=== PATIENT | male | born 1960 | race Caucasian/White ===

== ENCOUNTER 2016-09-07 00:40 | Emergency (ER) | payer OTHER ==
[~2016-09-07] VITALS: Ht 170.2 cm; Wt 74.8 kg
[2016-09-07 00:45] VITALS: BP_SYST 154
[2016-09-07 01:09] VITALS: BP_SYST 137
== END 2016-09-07 01:09 ==
LOC: SED 00:40
DX: Z04.1 Encounter for examination and observation following transport accident (principal)
CPT/HCPCS: 99283

== ENCOUNTER 2017-02-18 18:24 | Inpatient (IN) | payer OTHER ==
[~2017-02-18] VITALS: Ht 170.2 cm; Wt 78.0 kg
[2017-02-18 18:42] VITALS: BP_SYST 169
[2017-02-18] MEDS ORDERED: levETIRAcetam 1,000 MG IV BAG 100 ML IV ONE (18:45)
[2017-02-18] MEDS ORDERED: NACL 0.9% 1,000 ML IV ONE ×2 (18:45→21:45)
[2017-02-18 18:53] LABS: BASOPHILS # (AUTO) 0.1 K/uL (0.0-0.2); BASOPHILS % (AUTO) 0.8 % (0.0-2.0); EOSINOPHILS # (AUTO) 0.2 K/uL (0.0-0.4); EOSINOPHILS % (AUTO) 2.3 % (0.0-4.0); HEMATOCRIT 43.4 % (36-54); HEMOGLOBIN 14.2 g/dL (14.0-18.0); LYMPHOCYTES % (AUTO) 37.5 % (20.5-51.5); MEAN CORPUSCULAR HEMOGLOBIN 31 pg (27-31); MEAN CORPUSCULAR HGB CONC 33 % (32-36); MEAN CORPUSCULAR VOLUME 95 fL (79.0-98.0); MONOCYTES # (AUTO) 1.1 K/uL (0.0-1.0); MONOCYTES % (AUTO) 10.7 % (1.7-9.3); NEUTROPHILS # (AUTO) 5.2 K/uL (1.8-7.7); NEUTROPHILS % (AUTO) 48.7 % (40.0-70.0); PLATELET COUNT (AUTO) 447 K/uL (130-430); RED BLOOD CELL COUNT(AUTO) 4.58 MIL/uL (4.2-6.2); RED CELL DISTRIBUTION WIDTH 11.8 % (9.0-15.0); WHITE BLOOD COUNT (AUTO) 10.6 K/uL (4.8-10.8)
[2017-02-18 19:17] LABS: ANION GAP 23 (5-15); CALCIUM 9.4 mg/dL (8.4-11.0); CHLORIDE 101 mmol/L (98-107); CREATININE 1.52 mg/dL (0.55-1.30); GLUCOSE 111 mg/dL (70-99); INR 1.1 (0.80-1.20); PROTHROMBIN TIME 10.7 SECS (9.5-12.5); SODIUM SERUM 141 mmol/L (136-145); UREA NITROGEN, BLOOD 15 mg/dL (8-21)
[2017-02-18 19:25] LABS: ALANINE AMINOTRANSFERASE 33 U/L (12-78); ASPARTATE AMINOTRANSFERASE 27 U/L (10-37); TOTAL BILIRUBIN 0.3 mg/dL (0.0-1.0)
[2017-02-18 19:28] LABS: GFR AFRICAN AMERICAN 61 mL/min (>90)
[2017-02-18 19:29] LABS: ALCOHOL, BLOOD < 3 mg/dL (<10)
[2017-02-18 19:30] LABS: ACETAMINOPHEN < 1 ug/mL (1-30)
[2017-02-18 20:24] LABS: BILIRUBIN,URINE NEGATIVE (NEGATIVE); BLOOD, URINE 1+ (NEGATIVE); CLARITY/URINE CLEAR (CLEAR); COLOR,URINE YELLOW (YELLOW); GLUCOSE,URINE NEGATIVE (NEGATIVE); KETONES,URINE NEGATIVE (NEGATIVE); LEUKOCYTE ESTERASE ,URINE NEGATIVE (NEGATIVE); NITRITE, URINE NEGATIVE (NEGATIVE); PH,URINE 5.5 (5.0-8.0); PROTEIN URINE 1+ (NEGATIVE); UROBILINOGEN,URINE 0.2 (0.2-1.0)
[2017-02-18 20:28] LABS: BARBITURATE, URINE NEGATIVE (NEG <=200); BENZODIAZEPINE, URINE NEGATIVE (NEG <=150); CANNABINOID, URINE POSITIVE (NEG <=50); COCAINE, URINE NEGATIVE (NEG <=150); METHAMPHETAMINES SCREEN,URINE NEGATIVE (NEG <=500); OPIATE, URINE NEGATIVE (NEG <=100); PHENCYCLIDINE SCREEN,URINE NEGATIVE (NEG <=25); UR TRICYCLIC ANTIDEPRESSANTS NEGATIVE (NEG <=300); URINE AMPHETAMINE NEGATIVE (NEG <=500); URINE METHADONE NEGATIVE (NEG <=200); URINE OXYCODONE SCREEN NEGATIVE (NEG <=100); URINE PROPOXYPHENE SCREEN NEGATIVE (NEG <=300)
[2017-02-18 20:39] LABS: BACTERIA,URINE FEW /HPF (None Seen); FINE GRANULAR CASTS,URINE 0-10 /LPF (None Seen); HYALINE CASTS, URINE 0-10 /LPF (None Seen); MUCUS,URINE 2+ /LPF (None Seen); RBC,URINE 0-3 /HPF (0-3); WBC,URINE 0-3 /HPF (0-3)
[2017-02-18] MEDS ORDERED: POTASSIUM CHLORIDE 20 MEQ/PKT PACKET PO ONE (21:45)
[2017-02-18 22:09] VITALS: BP_SYST 127
[2017-02-18] MEDS ORDERED: MUPIROCIN 2% TOPICAL OINTMENT 22 GM NS PRN (22:15)
[2017-02-18] MEDS ORDERED: ACETAMINOPHEN 325 MG TABLET PO PRN (22:15)
[2017-02-18] MEDS ORDERED: POTASSIUM CHLORIDE 20 MEQ TAB.PRT.SR PO PRN (22:15)
[2017-02-18] MEDS ORDERED: DOCUSATE SODIUM 100 MG CAPSULE PO PRN (22:15)
[2017-02-18] MEDS ORDERED: LORazepam 2 MG/ML VIAL IVP PRN (22:15)
[2017-02-18] MEDS ORDERED: ONDANSETRON HCL 4 MG/2 ML VIAL IVP PRN (22:15)
[2017-02-18] MEDS ORDERED: MAGNESIUM SULFATE 50 ML IV PRN (22:15)
[2017-02-18] MEDS ORDERED: ZOLPIDEM TARTRATE 5 MG TABLET PO PRN (22:15)
[2017-02-18] MEDS ORDERED: MORPHINE 2 MG/ML INJ. SYRINGE IVP PRN ×2 (22:15)
[2017-02-19] VITALS (7 sets, daily range): BP systolic 118–136
[2017-02-19] MEDS: NACL 0.9% 1,000 ML IV SCH ×2 (02:13→13:50)
[2017-02-19 07:54] LABS: BASOPHILS % (AUTO) 0.4 % (0.0-2.0); EOSINOPHILS # (AUTO) 0.2 K/uL (0.0-0.4); EOSINOPHILS % (AUTO) 1.8 % (0.0-4.0); HEMATOCRIT 38.8 % (36-54); LYMPHOCYTES # (AUTO) 1.5 K/uL (1.0-5.5); LYMPHOCYTES % (AUTO) 17.8 % (20.5-51.5); MEAN CORPUSCULAR HEMOGLOBIN 32 pg (27-31); MEAN CORPUSCULAR HGB CONC 33 % (32-36); MEAN CORPUSCULAR VOLUME 96 fL (79.0-98.0); MONOCYTES # (AUTO) 0.6 K/uL (0.0-1.0); MONOCYTES % (AUTO) 7.1 % (1.7-9.3); NEUTROPHILS # (AUTO) 6.2 K/uL (1.8-7.7); NEUTROPHILS % (AUTO) 72.9 % (40.0-70.0); PLATELET COUNT (AUTO) 329 K/uL (130-430); RED BLOOD CELL COUNT(AUTO) 4.07 MIL/uL (4.2-6.2); RED CELL DISTRIBUTION WIDTH 11.6 % (9.0-15.0); WHITE BLOOD COUNT (AUTO) 8.5 K/uL (4.8-10.8)
[2017-02-19 08:01] LABS: CALCIUM 8.6 mg/dL (8.4-11.0); CREATININE 1.16 mg/dL (0.55-1.30); POTASSIUM 4.1 mmol/L (3.5-5.1)
[2017-02-19] MEDS: levETIRAcetam 500 MG TABLET PO SCH ×2 (09:48→20:42)
[2017-02-20 00:16] VITALS: BP_SYST 123
[2017-02-20] MEDS: NACL 0.9% 1,000 ML IV SCH ×2 (01:59→05:57)
[2017-02-20 04:07] VITALS: BP_SYST 129
[2017-02-20 07:14] LABS: BASOPHILS % (AUTO) 0.5 % (0.0-2.0); EOSINOPHILS # (AUTO) 0.1 K/uL (0.0-0.4); EOSINOPHILS % (AUTO) 1.7 % (0.0-4.0); HEMATOCRIT 38.2 % (36-54); HEMOGLOBIN 13.1 g/dL (14.0-18.0); LYMPHOCYTES # (AUTO) 1.7 K/uL (1.0-5.5); MEAN CORPUSCULAR HEMOGLOBIN 32 pg (27-31); MEAN CORPUSCULAR HGB CONC 34 % (32-36); MEAN CORPUSCULAR VOLUME 94 fL (79.0-98.0); MONOCYTES # (AUTO) 0.5 K/uL (0.0-1.0); MONOCYTES % (AUTO) 6.6 % (1.7-9.3); NEUTROPHILS # (AUTO) 5.8 K/uL (1.8-7.7); NEUTROPHILS % (AUTO) 70.2 % (40.0-70.0); PLATELET COUNT (AUTO) 294 K/uL (130-430); RED BLOOD CELL COUNT(AUTO) 4.05 MIL/uL (4.2-6.2); RED CELL DISTRIBUTION WIDTH 11.5 % (9.0-15.0); WHITE BLOOD COUNT (AUTO) 8.1 K/uL (4.8-10.8)
[2017-02-20 07:20] LABS: CALCIUM 8.9 mg/dL (8.4-11.0); CREATININE 1.02 mg/dL (0.55-1.30); POTASSIUM 3.7 mmol/L (3.5-5.1)
[2017-02-20 07:50] VITALS: BP_SYST 126
[2017-02-20] MEDS: levETIRAcetam 500 MG TABLET PO SCH (08:39)
[2017-02-20 10:47] VITALS: BP_SYST 130
[2017-02-20 11:44] VITALS: BP_SYST 131
[2017-02-20] MEDS ORDERED: LEVE500T53 PO (13:16)
[2017-02-20 15:16] VITALS: BP_SYST 130
== END 2017-02-20 15:50 | disposition home or self-care (01) | DRG 100 ==
LOC: SED 18:24 → STU 21:46
PROVIDERS: ADMIT General Practice; ATTEND General Practice
DX: G40.89 Other seizures (principal); N17.0 Acute kidney failure with tubular necrosis; E87.2 Acidosis; E87.6 Hypokalemia; G90.9 Disorder of the autonomic nervous system, unspecified; F12.20 Cannabis dependence, uncomplicated; Z88.1 Allergy status to other antibiotic agents
CPT/HCPCS: 36415; 70450-TC; 71010; 73030; 80048; 80053; 80307; 81000-TC; 83605; 83735-TC; 84484; 85025; 85610-TC; 85730-TC; 87040-TC; 93005; 96361; 96374; 99285; G0480; G0481; G0482; J1953; J7030